=== PATIENT | female | born 1935 | race Caucasian/White ===

== ENCOUNTER 2016-05-21 09:22 | Day surgery (SDC) | payer OTHER ==
[2016-05-19 17:20] VITALS: BMI 27.4
--- NOTE | 2016-05-21 09:17 | HP ---
Satellite [facility] - Chief Complaint Chief Complaint: left knee pain - Past Medical History Allergies/Adverse Reactions: Allergies Allergy/AdvReac Type Severity Reaction Status Date / Time No Known Drug Allergies Allergy Verified 05/19/16 17:30 - Current Medications Current Medications: Home Medications Medication Instructions Recorded Areds 2 1 tab PO DAILY 05/19/16 Valsartan/Hydrochlorothiazide 1 each PO DAILY 05/19/16 [Valsartan-Hctz 320-25 mg Tab] Oxycodone HCl/Acetaminophen 1 - 2 tab PO Q6H #50 tab MDD 8 05/21/16 [Percocet 5-325 mg Tablet -] Satellite Physical Exam - Physical Examination General Appearance: Well Nourished, Well Developed, Alert & Oriented x3 ENT: Clear Lung: Normal air movement Heart: Regular rate & rhythm Extremities: Other (left knee- + swelling, + ttp, dec rom, nvi) Neurological: Intact, Alert, Oriented Satellite Impression/Plan - Impression/Plan Impression: left knee internal derangement Operative Procedure: left knee arthroscopy Date to be Performed: 05/21/16
[2016-05-21 09:57] LABS: URINE APPEARANCE CLEAR; URINE BILIRUBIN NEGATIVE (NEGATIVE); URINE COLOR YELLOW; URINE GLUCOSE (UA) NEGATIVE (NEGATIVE); URINE KETONE NEGATIVE (NEGATIVE); URINE NITRITE NEGATIVE (NEGATIVE); URINE PROTEIN NEGATIVE (NEGATIVE); URINE UROBILINOGEN NEGATIVE E.U./dl (0.2-1.0)
[2016-05-21 09:59] LABS: URINE BLOOD 1+ (NEGATIVE); URINE LEUK ESTERASE 1+ (NEGATIVE)
[2016-05-21 10:01] LABS: URINE BACTERIA FEW /hpf (NONE SEEN); URINE MUCUS RARE; URINE RBC 12 /hpf (0-3); URINE WBC 5 /hpf (3-5)
[2016-05-21] MEDS ORDERED: PROPOFOL 20 ML ONE (11:17)
[2016-05-21] MEDS ORDERED: LIDOCAINE HCL 2% (20ML MULTI-DOSE VIAL) NR ONE (11:18)
[2016-05-21] MEDS ORDERED: DEXAMETHASONE SOD PHOSPHATE 4 MG/1 ML VIAL ONE (11:28)
[2016-05-21] MEDS ORDERED: LIDOCAINE 1%/EPI 1:100000 (50 ML MULTI DOSE VIAL) PNB ONE (11:33)
[2016-05-21] MEDS ORDERED: BUPIVACAINE HCL/PF 0.5% (5MG/ML) 10 ML VIAL IJ ONE (11:33)
[2016-05-21] MEDS ORDERED: ONDANSETRON 4 MG/2 ML VIAL IVPUSH PRN (12:10)
[2016-05-21] MEDS ORDERED: oxyCODONE HCL 5 MG TABLET PO PRN (12:10)
[2016-05-21] MEDS ORDERED: LACTATED RINGERS SOLUTION 1,000 ML IV SCH (12:15)
--- NOTE | 2016-05-21 12:47 | OP ---
Operative Note - Note: Operative Date: 05/21/16 Pre-Operative Diagnosis: internal derangement left knee Operation: arthroscopy left knee with partial medial and lateral meniscectomy Post-Operative Diagnosis: Same as Pre-op Surgeon: Bruce Phillips Anesthesia: Spinal Operative Report Dictated: Yes
[2016-05-21 12:48] VITALS: TEMP 98.1
[2016-05-21] MEDS ORDERED: oxyCODONE HCL 5 MG TABLET PO ONE (13:50)
[2016-05-21 15:40] VITALS: BP 140/63; PULSE 76
[2016-05-21] MEDS ORDERED: oxyCODONE HCL 5 MG TABLET ONE (15:52)
--- NOTE | 2016-05-22 08:19 | OP ---
DATE OF OPERATION: 05/21/2016 PREOPERATIVE DIAGNOSIS: Internal derangement, left knee. POSTOPERATIVE DIAGNOSIS: Internal derangement, left knee. PROCEDURE: Left knee arthroscopy, partial medial and lateral meniscectomies. SURGICAL ATTENDING: Bruce Phillips MD ANESTHESIA: General with LMA. CLOSURE: 4-0 nylon. COMPLICATIONS: None. CONDITION: To recovery room in stable condition. DESCRIPTION OF PROCEDURE: Patient was taken to the operating room on May 21, 2016. General anesthesia with LMA was administered by the anesthesiologist. The left lower extremity was prepped and draped in the usual sterile fashion. The superolateral and mediolateral infrapatellar portal sites were infiltrated with 1% Xylocaine with epinephrine. Superolateral portal was made with a 15-blade followed by blunt trocar. The knee was aspirated and inflated with cocktail 10 mL of 1% Xylocaine, 10 mL of 0.5% Marcaine, 20 mL of arthroscopic saline. The medial and lateral infrapatellar portals were then made with the 15-blade followed by the blunt trocar. The scope was placed in the lateral suprapatellar portal and up into suprapatellar pouch. Pouch was visualized to be clean. The medial and lateral gutters were visualized to be clean. The undersurface of the patella and the trochlea were visualized to be intact with valgus stress on the knee. The medial compartment was entered. The medial meniscus was visualized and found to have a small mid-surface radial tear. This was debrided back to smooth stable meniscal tissue using meniscal biter and arthroscopic shaver. The medial femoral condyle was run and found to be basically intact as was the medial tibial plateau. At 90 degrees, the ACL was visualized and found to be intact. In the figure 4 position, the lateral compartment was entered. The lateral meniscus was found to have a complex large tear of its entire portion of the meniscus, shredded and displaced. Almost a complete total lateral meniscectomy was performed using the biters and the tena. An ArthroCare device was used to cauterize any of the bleeders on the lateral capsule post meniscectomy. The lateral femoral condyle was found to be intact as was the lateral tibial plateau. The knee was irrigated out with copious amounts of irrigation. The portals were closed using 4-0 nylon. Prior to closure, 20 mL of 0.5% Marcaine was infused in the knee for postoperative analgesia. Sterile pressure dressing was placed over the knee. Patient awakened from anesthesia and transferred to recovery in stable condition. No complications. Estimated blood loss negligible. Sterling [id number]
--- NOTE | 2016-05-24 13:49 | PATH ---
Surgical Pathology Report Patient Name: LAILA CHAMBERS [facility]. Rec. #: [id number] /Age/Gender: 1935 (Age: 81) / F Account: [id number] Location: [facility] SURGICAL Taken: 05/21/2016 Received: 05/21/2016 Reported: 05/24/2016 Physicians: Bruce Phillips M.D. Specimen(s) Received ARTHROSCOPY LEFT KNEE Clinical History Left knee tear Final Diagnosis KNEE, LEFT, ARTHROSCOPIC SHAVING: FIBROCARTILAGE WITH MYXOID DEGENERATIVE CHANGES, ALONG WITH PORTIONS OF SYNOVIUM AND HYALINE CARTILAGE. Electronically Signed Jon Floey M.D. Gross Description Received in formalin, labeled "left knee shavings," is a 6.0 x 5.0 x 0.8 cm. aggregate of hutchinson-yellow soft tissue fragments. A pharmaceutical sales representative portion is submitted in one cassette. 05/21/201605/21/2016
== END 2016-05-21 16:25 | disposition home or self-care (01) ==
LOC: JASU-SURG 09:22
PROVIDERS: ATTEND Orthopaedic Surgery
PROC: 0SBD4ZZ Excision of Left Knee Joint, Percutaneous Endoscopic Approach (ICD-10-PCS; 2016-05-21)
PROC: 0SBD4ZZ Excision of Left Knee Joint, Percutaneous Endoscopic Approach (ICD-10-PCS; principal; 2016-05-21 11:00)
DX: M23.8X1 Other internal derangements of right knee (principal)
CPT/HCPCS: 81003; 81015; 88304-TC; 94760